=== PATIENT | female | born 1945 | race Caucasian/White ===

== ENCOUNTER 2016-10-05 18:24 | Emergency (ER) | payer MEDICARE, BC ==
[2016-10-05 19:12] VITALS: BP 143/67
--- NOTE | 2016-10-05 21:38 | UC ---
Skin Complaint HPI - HPI Summary HPI Summary: 70 female presents with complaints and concerns of a tick bite that she noticed and removed on Monday10/03/16. Patient was able to remove entire tick without complication. It was in her right bicep. States she does not think it was in there longer than 1 day. She states she was out feeding outdoor cats on Monday and believes it was from that. She denies bullseye rash, arthralgias or any complaints at this time. Son was concerned because the bite was bruised and thought she should have it checked. Denies fever/chills. - History of Current Complaint Chief Complaint: UCSkin Time Seen by Provider: 10/05/16 20:33 Stated Complaint: TICK BITE Hx Obtained From: Patient Onset/Duration: Sudden Onset, Resolved Skin Exposure Onset/Duration: Days Ago - 3 Onset Severity: Mild Current Severity: None Pain Intensity: 0 Pain Scale Used: 0-10 Numeric Location: Other - right bicep Character: Redness Aggravating: Nothing Alleviating: Treatment FRAUD REPRESENTATIVE: - removal of tick Associated Signs & Symptoms: Positive: Negative Related History: Insect Bite/Sting - tick bite - Allergy/Home Medications Allergies/Adverse Reactions: Allergies Allergy/AdvReac Type Severity Reaction Status Date / Time Penicillins Allergy Severe HIVES , Verified 10/05/16 19:00 RAPID HEART RATE Erythromycin Allergy HIVES. Verified 10/05/16 19:00 RAPID HEART RATE Review of Systems Constitutional: Negative Skin: Bruising - surrounding tick bite, Other - tick bite Respiratory: Negative Cardiovascular: Negative Motor: Negative Neurovascular: Negative Musculoskeletal: Negative Neurological: Negative All Other Systems Reviewed And Are Negative: Yes PMH/Surg Hx/FS Hx/Imm Hx Cardiovascular History: Hypertension - Surgical History Surgical History: Yes Surgery Procedure, Year, and Place: HYSTERECTOMY, TONSILLECTOMY - Family History Known Family History: Positive: None - Social History Alcohol Use: None Substance Use Type: None Smoking Status (MU): Former Smoker Type: Cigarettes When Did the Patient Quit Smoking/Using Tobacco: 40 YEARS Physical Exam Triage Information Reviewed: Yes Appearance: Well-Appearing, No Pain Distress, Well-Nourished Vital Signs: Initial Vital Signs Temp 98.9 F 10/05/16 19:01 Pulse 86 10/05/16 19:01 Resp 16 10/05/16 19:01 BP 143/67 10/05/16 19:01 Pulse Ox 96 10/05/16 19:01 BP elevated. patient is diagnosed with HTN. told to have re-checked at pcp at next visit. Vital Signs Reviewed: Yes Eyes: Positive: Conjunctiva Clear ENT: Positive: Normal ENT inspection, Hearing grossly normal Neck: Positive: Supple, Nontender Respiratory: Positive: Chest non-tender, Lungs clear, Normal breath sounds, No respiratory distress, No accessory muscle use. Negative: Decreased breath sounds, Crackles, Rhonchi, Wheezing Cardiovascular: Positive: RRR, No Murmur, Pulses Normal Musculoskeletal: Positive: Strength Intact, ROM Intact, No Edema Neurological: Positive: Alert, Muscle Tone Normal Psychological Exam: Normal Skin: Positive: Other - small pea size area of erythema to right anterior bicep area. no edema, not raised, non tender. no erythema migrans. does not appear infected. no discharge. healing yellow ecchymosis noted surrounding bit approximately yonis size. rest of skin exam normal Course/Dx - Course Course Of Treatment: patient was educated on tick bites and lyme disease. tick was present in a bottle and was a deer tick, still alive. no concern for lyme disease at this time and due to length of time attached being <36 hours and removal of tick >72 hours no prophylactic treatment needed at this time. Follow up with pcp. Aware of worsening signs and symptoms to watch out for and to keep an eye out for bullseye rash. - Differential Diagnoses - Skin Complaint Differential Diagnoses: Cellulitis, Contact Dermatitis, Local Allergic Reaction , MRSA, Tick Born Illness, Tinea, Urticaria, Other - Diagnoses Provider Diagnoses: tick bite Discharge - Discharge Plan Condition: Stable Disposition: HOME Patient Education Materials: Tick Bite (ED), Lyme Disease (ED) Referrals: Micah Shoemaker MD [Primary Care Provider] - Additional Instructions: Keep an eye out for the bullseye rash as we discussed. Education on lyme disease is attached. Wear bugs spray with DEET when outside. Be sure to check skin after coming inside. Follow up with primary care provider.
== END 2016-10-05 21:49 | disposition home or self-care (01) ==
LOC: UCCORT 18:24
DX: S40.861A Insect bite (nonvenomous) of right upper arm, initial encounter (principal); W57.XXXA Bitten or stung by nonvenomous insect and other nonvenomous arthropods, initial encounter; Y93.9 Activity, unspecified; Y92.9 Unspecified place or not applicable; I10 Essential (primary) hypertension; Z88.0 Allergy status to penicillin; Z88.1 Allergy status to other antibiotic agents; Z87.891 Personal history of nicotine dependence
CPT/HCPCS: 99211; G0463

== ENCOUNTER 2019-01-09 10:45 | Emergency (ER) | payer MEDICARE, BC ==
[2019-01-09 10:57] VITALS: BP 142/75
--- NOTE | 2019-01-09 11:37 | UC ---
Eye Complaint HPI - HPI Summary HPI Summary: 73-year-old female presents with 2 day history of right eye redness, itching, and purulent drainage. States she woke up this morning with the eye crusted shut. Denies fever, chills,eye pain, visual disturbances, photophobia, or URI symptoms. - History of Current Complaint Chief Complaint: UCEye Stated Complaint: RT EYE COMPLAINT Time Seen by Provider: 01/09/19 11:19 Hx Obtained From: Patient Pain Intensity: 0 - Allergies/Home Medications Allergies/Adverse Reactions: Allergies Allergy/AdvReac Type Severity Reaction Status Date / Time erythromycin base Allergy Hives Verified 01/09/19 10:57 Penicillins Allergy Hives Verified 01/09/19 10:57 Home Medications: Home Medications Multivitamin with Folic Acid [Essential One Daily Multi] 1 tab PO 01/09/19 [ History] NIFEdipine CAP* [Procardia CAP*] 30 mg PO DAILY 01/09/19 [History Confirmed ] metFORMIN* [Glucophage 500 MG TAB *] 500 mg PO DAILY 01/09/19 [History Confirmed 01/09/19] PMH/Surg Hx/FS Hx/Imm Hx Endocrine History: Diabetes Cardiovascular History: Hypertension - Surgical History Surgical History: Yes Surgery Procedure, Year, and Place: HYSTERECTOMY, TONSILLECTOMY - Family History Known Family History: Positive: Non-Contributory - Social History Occupation: Retired Lives: With Family Alcohol Use: None Substance Use Type: None Smoking Status (MU): Former Smoker Type: Cigarettes When Did the Patient Quit Smoking/Using Tobacco: 40 YEARS Review of Systems All Other Systems Reviewed And Are Negative: Yes Constitutional: Negative: Fever, Chills Eyes: Positive: Drainage, Eye Redness. Negative: Blurred Vision, Diplopia, Photophobia ENT: Negative: Sore Throat, Ear Ache, Nasal Discharge, Sinus Congestion, Sinus Pain/Tenderness Respiratory: Positive: Negative Cardiovascular: Positive: Negative Gastrointestinal: Positive: Negative Genitourinary: Positive: Negative Musculoskeletal: Positive: Negative Neurological: Positive: Negative Is Patient Immunocompromised?: No Physical Exam - Summary Physical Exam Summary: GENERAL APPEARANCE: Alert and cooperative older adult female who appears to be in no acute distress. EYES: Left conjunctiva clear. No drainage. Right conjunctival erythema with purulent discharge. PERRL, EOM intact. Vision is grossly intact. EARS: External auditory canals and tympanic membranes clear, hearing grossly intact. NOSE: No nasal discharge. THROAT: Pharynx normal. Uvula midline. NECK: Neck supple, non-tender without lymphadenopathy. CARDIAC: Normal S1 and S2. No S3, S4 or murmurs. Rhythm is regular. There is no peripheral edema, cyanosis or pallor. Extremities are warm and well perfused. Capillary refill is less than 2 seconds. Peripheral pulses intact. LUNGS: Clear to auscultation without rales, rhonchi, wheezing or diminished breath sounds. ABDOMEN: Positive bowel sounds. Soft, nondistended, nontender. No guarding or rebound. No masses or hepatosplenomegally. MUSKULOSKELETAL: ROM intact to all extremities. No joint erythema or tenderness. Normal muscular development. Normal gait. SKIN: Skin normal color, texture and turgor. Triage Information Reviewed: Yes Vital Signs: Initial Vital Signs Temp 98.9 F 01/09/19 10:53 Pulse 79 01/09/19 10:53 Resp 17 01/09/19 10:53 BP 142/75 01/09/19 10:53 Pulse Ox 95 01/09/19 10:53 Vital Signs Reviewed: Yes Eye Complaint Course/Dx - Course Course Of Treatment: 73-year-old female presents with 2 day history of right eye redness, itching, and purulent drainage. States she woke up this morning with the eye crusted shut. Denies fever, chills,eye pain, visual disturbances, photophobia, or URI symptoms. Afebrile. Hypertensive otherwise vital signs stable. Patient hand right conjunctival erythema with purulent drainage and otherwise unremarkable exam. Will treat her for an acute bacterial conjunctivitis of the right eye with ofloxacin ophthalmic 1-2 drops every 4 hours while awake 7 days. She is to follow-up with her primary care provider in 3 days if symptoms are not improving. Anticipatory guidance warning symptoms reviewed with the patient. Verbalizes understanding and agrees with plan of care. - Differential Dx/Diagnosis Differential Diagnosis/HQI/PQRI: Conjunctivitis, Foreign Body, Periorbital Cellulitis Provider Diagnosis: Acute bacterial conjunctivitis of right eye Discharge ED - Sign-Out/Discharge Documenting (check all that apply): Patient Departure All imaging exams completed and their final reports reviewed: No Studies - Discharge Plan Condition: Stable Disposition: HOME Prescriptions: Ofloxacin 0.3% (Eye Drop) [Ocuflox OPTH 0.3% (Eye Drop)] 1 - 2 drop RIGHT EYE Q4H 7 Days #1 btl Patient Education Materials: Conjunctivitis (ED) Referrals: Micah Shoemaker MD [Primary Care Provider] - 3 Days (If no improvement) Additional Instructions: Start ofloxacin ophthalmic 1-2 drops into the right eye every 4 hours while awake for 7 days. To avoid reinfection or spreading infection: * Use washcloths and towels once then launder. * Do not share washcloths or towels with others. * Change your pillow case each morning until you have finished treatment. * You should throw out any eye makeup, especially mascara, and use a new one once you have finished treatment. Follow up here or with your primary care provider in 3 days if no improvement. Seek immediate medical attention in the emergency room if you develop fever greater than 100.5 F, have pain or swelling of the eye, visual disturbances, loss of vision, or any worsening of symptoms. - Billing Disposition and Condition Condition: STABLE Disposition: Home
== END 2019-01-09 11:46 | disposition home or self-care (01) ==
LOC: UCCORT 10:45
DX: H10.31 Unspecified acute conjunctivitis, right eye (principal); E11.9 Type 2 diabetes mellitus without complications; I10 Essential (primary) hypertension; Z88.0 Allergy status to penicillin; Z87.891 Personal history of nicotine dependence
CPT/HCPCS: 99212; G0463